=== PATIENT | female | born 1960 | race Two or more races ===

== ENCOUNTER 2023-11-27 15:27 | Inpatient (IN) | payer BC, OTHER ==
[~2023-11-27] VITALS: Ht 160 cm; Wt 99.8 kg
[2023-11-27 08:25] VITALS: BP 136/86; TEMP 97.7; O2SAT 99
[2023-11-27 16:36] LABS: BASOPHILS % (AUTO) 0.5 % (0.0-2.0); EOSINOPHILS # (AUTO) 0.1 K/uL (0.0-0.7); EOSINOPHILS % (AUTO) 2.1 % (0.0-6.0); HEMATOCRIT 41 % (33-45); HEMOGLOBIN 13.3 g/dL (11.5-14.8); LYMPHOCYTES % (AUTO) 41.5 % (20.0-44.0); MEAN CORPUSCULAR HEMOGLOBIN 27 PG (26.0-33.0); MEAN CORPUSCULAR HGB CONC 33 g/dl (31.0-36.0); MEAN CORPUSCULAR VOLUME 82 fL (82-100); MONOCYTES # (AUTO) 0.6 K/uL (0.1-1.30); NEUTROPHILS # (AUTO) 3.4 K/uL (1.8-8.9); NEUTROPHILS % (AUTO) 47.9 % (43.0-81.0); PLATELET COUNT (AUTO) 295 K/uL (150-450); RED BLOOD CELL COUNT(AUTO) 4.93 MIL/uL (4.0-5.2); RED CELL DISTRIBUTION WIDTH 14.1 % (11.5-15.0); WHITE BLOOD COUNT (AUTO) 7.2 K/uL (4.3-11.0)
[2023-11-27 16:44] LABS: CALCIUM, SERUM 9.1 mg/dL (8.5-10.1); CARBON DIOXIDE 29 mmol/L (21-32); CHLORIDE 105 mmol/L (98-107); CREATININE 0.7 mg/dL (0.6-1.3); GLUCOSE 108 mg/dL (74-106); POTASSIUM 3.1 mmol/L (3.5-5.1); SODIUM SERUM 142 mmol/L (136-145); UREA NITROGEN, BLOOD 14 mg/dL (7-18)
[2023-11-27] MEDS ORDERED: AMLO-212 PO (16:49)
[2023-11-27] MEDS ORDERED: IPRA0.2S49 IH (16:49)
[2023-11-27] MEDS ORDERED: DOCUSATE SODIUM PO (16:49)
[2023-11-27] MEDS ORDERED: PREG100C PO (16:49)
[2023-11-27] MEDS ORDERED: ONDA-97 PO (16:49)
[2023-11-27] MEDS ORDERED: NYST30CR2 TP (16:49)
[2023-11-27] MEDS ORDERED: LEVO5TAB13 PO (16:49)
[2023-11-27 17:00] LABS: ALANINE AMINOTRANSFERASE 9 U/L (12-78); ALBUMIN 3.6 g/dL (3.4-5.0); ALKALINE PHOSPHATASE 83 U/L (46-116); ASPARTATE AMINOTRANSFERASE 18 U/L (15-37); BILIRUBIN,DIRECT 0.1 mg/dL (0.0-0.2); BILIRUBIN,TOTAL 0.4 mg/dL (0.2-1.0); NT-PRO BNP 402 pg/mL (0-125); TOTAL PROTEIN, SERUM 7.2 g/dL (6.4-8.2)
[2023-11-27] MEDS: MORPHINE SULFATE INJ 2 MG/ML DISP.SYRIN IV ONE (17:08)
[2023-11-27] MEDS ORDERED: MORPHINE SULFATE INJ 2 MG/ML DISP.SYRIN ONE (17:10)
[2023-11-27] MEDS ORDERED: Z GUARD REMEDY 4 OZ OINT TP PRN (18:00)
[2023-11-27] MEDS ORDERED: ZOLPIDEM TARTRATE 5 MG TABLET PO PRN (18:00)
[2023-11-27] MEDS ORDERED: HYDROCODONE/APAP 5/325MG TABLET PO PRN (18:00)
[2023-11-27] MEDS ORDERED: ACETAMINOPHEN 325 MG TABLET PO PRN (18:00)
[2023-11-27] MEDS ORDERED: ONDANSETRON HCL/PF 4 MG/2 ML VIAL IVP PRN (18:00)
[2023-11-27] MEDS ORDERED: MAGNESIUM HYDROXIDE 30 ML UDC PO PRN (18:00)
[2023-11-27 18:48] VITALS: BP 133/81; TEMP 97.9; O2SAT 96
[2023-11-27 20:00] VITALS: BP 136/86; TEMP 97.7; O2SAT 99
[2023-11-27] MEDS: ENOXAPARIN SODIUM 40 MG/0.4 ML DISP.SYRIN SQ SCH (20:21)
[2023-11-27] MEDS: MAG HYDROX/AL HYDROX/SIMETH 30 ML UDC PO PRN (22:02)
[2023-11-28] VITALS (8 sets, daily range): BP systolic 109–136; BP diastolic 64–91; TEMP 97.7–98.5; O2SAT 97–100
[2023-11-28] MEDS: POTASSIUM CHLORIDE 20 MEQ TAB.PRT.SR PO ONE (01:16)
[2023-11-28 06:08] LABS: BASOPHILS % (AUTO) 0.5 % (0.0-2.0); EOSINOPHILS # (AUTO) 0.1 K/uL (0.0-0.7); EOSINOPHILS % (AUTO) 2.5 % (0.0-6.0); HEMATOCRIT 38 % (33-45); HEMOGLOBIN 12.4 g/dL (11.5-14.8); LYMPHOCYTES # (AUTO) 2.2 K/uL (0.8-4.8); LYMPHOCYTES % (AUTO) 39.3 % (20.0-44.0); MEAN CORPUSCULAR HEMOGLOBIN 27 PG (26.0-33.0); MEAN CORPUSCULAR HGB CONC 32 g/dl (31.0-36.0); MEAN CORPUSCULAR VOLUME 83 fL (82-100); MONOCYTES # (AUTO) 0.5 K/uL (0.1-1.30); MONOCYTES % (AUTO) 9.7 % (2.0-12.0); NEUTROPHILS # (AUTO) 2.7 K/uL (1.8-8.9); PLATELET COUNT (AUTO) 248 K/uL (150-450); RED BLOOD CELL COUNT(AUTO) 4.65 MIL/uL (4.0-5.2); RED CELL DISTRIBUTION WIDTH 14.4 % (11.5-15.0); WHITE BLOOD COUNT (AUTO) 5.6 K/uL (4.3-11.0)
[2023-11-28 06:48] LABS: THYROID STIMULATING HORMONE 1.41 uIU/mL (0.358-3.74)
[2023-11-28] MEDS: PANTOPRAZOLE 40 MG TABLET.DR PO SCH (08:16)
[2023-11-28 09:56] LABS: CALCIUM, SERUM 8.7 mg/dL (8.5-10.1); CREATININE 0.8 mg/dL (0.6-1.3); MAGNESIUM 1.9 mg/dL (1.8-2.4); PHOSPHORUS 3.8 mg/dL (2.5-4.9)
[2023-11-28] MEDS: BUTALB/APAP/CAFFEINE 1 EACH TABLET PO PRN (10:35)
[2023-11-28] MEDS: AMLODIPINE BESYLATE 5 MG TABLET PO SCH (10:35)
[2023-11-28] MEDS ORDERED: NYSTATIN CREAM 15 GM TUBE TP PRN (14:00)
[2023-11-28] MEDS ORDERED: Medication Not On Formulary EA (Ondansetron Hcl 4 MG) PO SCH (14:00)
[2023-11-28] MEDS ORDERED: IV NS 0.9% 250 ML IV ONE (14:07)
[2023-11-28] MEDS ORDERED: IOHEXOL-350 100 ML VIAL IV ONE (14:07)
[2023-11-28] MEDS ORDERED: CT SWABBABLE VALVE TRANS SET 1 EA INFUS.SET MC ONE (14:07)
[2023-11-28] MEDS ORDERED: NITROGLYCERIN 0.4 MG/TAB BOTTLE ONE (14:53)
[2023-11-28] MEDS: METOPROLOL TARTRATE INJ 5 MG/5 ML AMPUL IVP PRN (15:00)
[2023-11-28] MEDS: NITROGLYCERIN 0.4 MG/TAB BOTTLE SL ONE (15:04)
[2023-11-28] MEDS ORDERED: IPRATROPIUM NEB FS 0.5 MG/2.5 ML AMPUL.NEB IH PRN (15:30)
[2023-11-28] MEDS ORDERED: IPRATROPIUM NEB FS 0.5 MG/2.5 ML AMPUL.NEB IH SCH (15:30)
[2023-11-28] MEDS ORDERED: PREGABALIN 100 MG CAPSULE PO SCH (22:00)
[2023-11-28] MEDS ORDERED: Medication Not On Formulary EA (Levocetirizine Dihydrochloride 5 MG) PO SCH (22:00)
[2023-11-29] MEDS ORDERED: cetrizine 10 MG TABLET PO SCH (09:00)
== END 2023-11-28 21:54 | DRG 206 ==
LOC: ER 16:21 → TELE1 17:56
PROVIDERS: ADMIT Student in an Organized Health Care Education/Training Program; ATTEND Student in an Organized Health Care Education/Training Program
DX: M94.0 Chondrocostal junction syndrome [Tietze] (principal); E87.6 Hypokalemia; I11.0 Hypertensive heart disease with heart failure; I50.9 Heart failure, unspecified; K31.84 Gastroparesis; E78.5 Hyperlipidemia, unspecified; J44.9 Chronic obstructive pulmonary disease, unspecified; M79.7 Fibromyalgia; Z79.82 Long term (current) use of aspirin; Z88.6 Allergy status to analgesic agent
CPT/HCPCS: 36415; 71045-TC; 75574; 80048-TC; 80076-TC; 83735-TC; 83880; 84100-TC; 84443-TC; 84484-TC; 85025-TC; 93307-TC; 94799-TC; G0378; J1650; J2270; J3490; J7050; Q9967

== ENCOUNTER 2023-12-02 15:36 | Inpatient (IN) | payer BC, OTHER ==
[~2023-12-02 15:36] MED LIST: AMLO-212 PO; DOCUSATE SODIUM PO; IPRA0.2S49 IH; LEVO5TAB13 PO; NYST30CR2 TP; ONDA-97 PO; PREG100C PO
[2023-12-02] MEDS ORDERED: ONDANSETRON HCL/PF 4 MG/2 ML VIAL IVP PRN (22:00)
[2023-12-02] MEDS ORDERED: MAG HYDROX/AL HYDROX/SIMETH 30 ML UDC PO PRN (22:00)
[2023-12-02] MEDS ORDERED: Z GUARD REMEDY 4 OZ OINT TP PRN (22:00)
[2023-12-02] MEDS ORDERED: ZOLPIDEM TARTRATE 5 MG TABLET PO PRN (22:00)
[2023-12-02] MEDS ORDERED: MAGNESIUM HYDROXIDE 30 ML UDC PO PRN (22:00)
[2023-12-03] VITALS: BP 138/80; TEMP 97.7; O2SAT 97
[2023-12-03 04:00] VITALS: BP 138/99; TEMP 98.8; O2SAT 97
[2023-12-03 07:43] LABS: BASOPHILS % (AUTO) 0.2 % (0.0-2.0); EOSINOPHILS # (AUTO) 0.1 K/uL (0.0-0.7); EOSINOPHILS % (AUTO) 0.9 % (0.0-6.0); HEMATOCRIT 39 % (33-45); HEMOGLOBIN 13.3 g/dL (11.5-14.8); LYMPHOCYTES # (AUTO) 2.2 K/uL (0.8-4.8); MEAN CORPUSCULAR HEMOGLOBIN 28 PG (26.0-33.0); MEAN CORPUSCULAR HGB CONC 34 g/dl (31.0-36.0); MEAN CORPUSCULAR VOLUME 82 fL (82-100); MONOCYTES # (AUTO) 0.7 K/uL (0.1-1.30); MONOCYTES % (AUTO) 7.5 % (2.0-12.0); NEUTROPHILS # (AUTO) 6.7 K/uL (1.8-8.9); NEUTROPHILS % (AUTO) 68.4 % (43.0-81.0); PLATELET COUNT (AUTO) 312 K/uL (150-450); RED BLOOD CELL COUNT(AUTO) 4.82 MIL/uL (4.0-5.2); RED CELL DISTRIBUTION WIDTH 14.4 % (11.5-15.0); WHITE BLOOD COUNT (AUTO) 9.8 K/uL (4.3-11.0)
[2023-12-03] MEDS: PANTOPRAZOLE 40 MG TABLET.DR PO SCH (07:59)
[2023-12-03 08:00] VITALS: BP 135/96; TEMP 98.2; O2SAT 98
[2023-12-03] MEDS: ENOXAPARIN SODIUM 40 MG/0.4 ML DISP.SYRIN SQ SCH (08:00)
[2023-12-03] MEDS ORDERED: CLON0.1T PO (08:03)
[2023-12-03] MEDS ORDERED: ESCI20TA PO (08:03)
[2023-12-03] MEDS ORDERED: DOCU250C14 PO (08:03)
[2023-12-03] MEDS ORDERED: PANT40TA2 PO (08:03)
[2023-12-03] MEDS ORDERED: ATOR20TA PO (08:03)
[2023-12-03] MEDS ORDERED: DICY10CA13 PO (08:03)
[2023-12-03] MEDS ORDERED: ATEN50TA PO (08:03)
[2023-12-03] MEDS ORDERED: HYDR50TA61 PO (08:03)
[2023-12-03] MEDS ORDERED: FAMO20TA80 PO (08:03)
[2023-12-03] MEDS ORDERED: MECL-159 PO (08:04)
[2023-12-03] MEDS ORDERED: TRAZ150T75 PO (08:04)
[2023-12-03] MEDS ORDERED: FERR-68 PO (08:04)
[2023-12-03] MEDS ORDERED: [UNRECOGNIZED DRUG - CODE] PO (08:04)
[2023-12-03] MEDS ORDERED: NYST15PO3 TP (08:04)
[2023-12-03] MEDS ORDERED: CALC-167 PO (08:04)
[2023-12-03] MEDS ORDERED: ASPI-1169 PO (08:04)
[2023-12-03] MEDS ORDERED: MAGN400T26 PO (08:04)
[2023-12-03] MEDS ORDERED: CYAN-51 PO (08:04)
[2023-12-03] MEDS ORDERED: FOLI0.4T6 PO (08:04)
[2023-12-03] MEDS ORDERED: LACT1TAB20 PO (08:04)
[2023-12-03 08:24] LABS: ALANINE AMINOTRANSFERASE < 6 U/L (12-78); ALBUMIN 3.2 g/dL (3.4-5.0); ALKALINE PHOSPHATASE 97 U/L (46-116); ASPARTATE AMINOTRANSFERASE 11 U/L (15-37); BILIRUBIN,DIRECT 0.2 mg/dL (0.0-0.2); BILIRUBIN,TOTAL 0.8 mg/dL (0.2-1.0); CALCIUM, SERUM 8.8 mg/dL (8.5-10.1); CARBON DIOXIDE 22 mmol/L (21-32); CHLORIDE 108 mmol/L (98-107); CREATININE 0.6 mg/dL (0.6-1.3); GLUCOSE 141 mg/dL (74-106); MAGNESIUM 1.7 mg/dL (1.8-2.4); PHOSPHORUS 3.2 mg/dL (2.5-4.9); POTASSIUM 3.3 mmol/L (3.5-5.1); SODIUM SERUM 144 mmol/L (136-145); TOTAL PROTEIN, SERUM 7.1 g/dL (6.4-8.2); UREA NITROGEN, BLOOD 9 mg/dL (7-18)
[2023-12-03 08:31] LABS: LACTIC ACID 1.1 mmol/L (0.4-2.0)
[2023-12-03 08:35] LABS: CHOLESTEROL 195 mg/dL (<200); HDL CHOLESTEROL 59 mg/dL (40-60); LDL 106 mg/dL (0-99); TRIGLYCERIDES 92 mg/dL (30-150)
[2023-12-03] MEDS ORDERED: SUMA100T PO (09:15)
[2023-12-03] MEDS: CEFTRIAXONE 1 G in IV D5W 50 ML IV SCH (09:50)
[2023-12-03] MEDS ORDERED: FIXODENT DENTURE ADHESIVE CREAM TUBE MM PRN (10:00)
[2023-12-03] MEDS ORDERED: MAGNESIUM OXIDE 400 MG TABLET PO ONE ×2 (11:00→16:30)
[2023-12-03] MEDS: Magnesium 1GM/D5W 100ML PREMIX 100 ML IV SCH (11:30)
[2023-12-03] MEDS: POTASSIUM CHLORIDE 20 MEQ TAB.PRT.SR PO SCH (11:52)
[2023-12-03] MEDS: IBUPROFEN 600 MG TABLET PO PRN (11:56)
[2023-12-03 12:04] LABS: THYROID STIMULATING HORMONE 2.17 uIU/mL (0.358-3.74)
[2023-12-03] MEDS ORDERED: MAGNESIUM CHLORIDE 64 MG TABLET.SA PO SCH (14:30)
[2023-12-03 16:00] VITALS: BP 148/92; TEMP 98.4; O2SAT 98
[2023-12-03] MEDS: MAGNESIUM OXIDE 400 MG TABLET PO ONE ×3 (17:04→17:05)
[2023-12-03 21:34] VITALS: BP 149/100; TEMP 98.1; O2SAT 98
[2023-12-04 04:00] VITALS: BP 148/90; TEMP 98.1; O2SAT 98
[2023-12-04 08:00] VITALS: BP 139/95; TEMP 98.1; O2SAT 100
[2023-12-04 08:06] LABS: CALCIUM, SERUM 8.9 mg/dL (8.5-10.1); CARBON DIOXIDE 16 mmol/L (21-32); CHLORIDE 107 mmol/L (98-107); CREATININE 0.7 mg/dL (0.6-1.3); GLUCOSE 185 mg/dL (74-106); MAGNESIUM 2.1 mg/dL (1.8-2.4); POTASSIUM 3.3 mmol/L (3.5-5.1); SODIUM SERUM 140 mmol/L (136-145); UREA NITROGEN, BLOOD 10 mg/dL (7-18)
[2023-12-04 09:09] LABS: FOLIC ACID 16.9 ng/mL (>3.0)
[2023-12-04] MEDS: PANTOPRAZOLE 40 MG TABLET.DR PO SCH (11:30)
[2023-12-04] MEDS ORDERED: CLONIDINE HCL 0.1 MG TABLET PO PRN (11:30)
[2023-12-04] MEDS ORDERED: SUMATRIPTAN SUCCINATE 100 MG TABLET PO PRN (11:30)
[2023-12-04] MEDS: ALPRAZOLAM 0.25 MG TABLET PO PRN (11:35)
[2023-12-04] MEDS: POTASSIUM CHLORIDE 20 MEQ TAB.PRT.SR PO SCH (11:35)
[2023-12-04] MEDS: ASPIRIN 81 MG TAB.CHEW PO SCH (12:25)
[2023-12-04] MEDS: MAGNESIUM OXIDE 400 MG TABLET PO SCH (12:25)
[2023-12-04] MEDS: DOCUSATE SODIUM 250 MG CAPSULE PO SCH (12:25)
[2023-12-04] MEDS: FERROUS SULFATE (325 MG) 325 MG/TAB TABLET PO SCH (12:25)
[2023-12-04] MEDS: FAMOTIDINE (20 MG) 20 MG TABLET PO SCH (12:26)
[2023-12-04] MEDS: ATENOLOL 50 MG TABLET PO SCH (12:27)
[2023-12-04] MEDS: DICYCLOMINE HCL 10 MG CAPSULE PO SCH (12:37)
[2023-12-04] MEDS: PREGABALIN 100 MG CAPSULE PO SCH (12:37)
[2023-12-04 16:00] VITALS: BP 131/82; TEMP 97.7; O2SAT 98
[2023-12-04] MEDS ORDERED: POTASSIUM CHLORIDE 20 MEQ TAB.PRT.SR PO ONE (16:00)
[2023-12-04] MEDS: POTASSIUM CHLORIDE 20 MEQ TAB.PRT.SR PO ONE (16:56)
[2023-12-04] MEDS ORDERED: POTASSIUM CHLORIDE 20 MEQ TAB.PRT.SR PO SCH (17:00)
[2023-12-04 20:00] VITALS: BP 133/93; TEMP 98.2; O2SAT 98
[2023-12-04] MEDS: ATORVASTATIN 10 MG TABLET PO SCH (21:29)
[2023-12-04] MEDS: TRAZODONE 50 MG TABLET PO SCH (21:29)
[2023-12-04] MEDS: TRAZODONE 50 MG TABLET PO ONE (21:50)
[2023-12-05] MEDS: hydrOXYzine PAMOATE 25 MG CAPSULE PO PRN (06:42)
[2023-12-05 08:30] VITALS: BP 123/79; TEMP 98; O2SAT 100
[2023-12-05] MEDS: ESCITALOPRAM OXALATE (10 MG) 10 MG TABLET PO SCH (09:02)
[2023-12-05] MEDS: AMLODIPINE BESYLATE 5 MG TABLET PO SCH (09:03)
[2023-12-05] MEDS: ENSURE ENLIVE 237 ML LIQUID (VANILLA) PO SCH (09:14)
[2023-12-05] MEDS: ALPRAZOLAM 1 MG TABLET PO ONE (10:00)
[2023-12-05 16:45] VITALS: BP 100/66; TEMP 98.7; O2SAT 94
[2023-12-05 20:00] VITALS: BP 121/62; TEMP 98.7; O2SAT 95
[2023-12-06 04:00] VITALS: BP 120/60; TEMP 98.2; O2SAT 96
[2023-12-06 08:00] VITALS: BP 140/68; TEMP 97.6; O2SAT 98
[2023-12-06] MEDS: MECLIZINE HCL 25 MG TABLET PO PRN (10:05)
[2023-12-06] MEDS ORDERED: IV NS 0.9% 250 ML IV ONE (14:52)
[2023-12-06] MEDS ORDERED: CT SWABBABLE VALVE TRANS SET 1 EA INFUS.SET MC ONE (14:52)
[2023-12-06] MEDS ORDERED: IOHEXOL-350 100 ML VIAL IV ONE (14:52)
[2023-12-06] MEDS: ALPRAZOLAM 1 MG TABLET PO ONE (14:56)
[2023-12-06 16:00] VITALS: BP 122/85; TEMP 97.6; O2SAT 98
[2023-12-06 20:00] VITALS: BP_SYST 102; BP_DIAS 51; BP_DIAS 56; TEMP 97.7; O2SAT 96
[2023-12-06] MEDS ORDERED: AMOX-430 PO (20:14)
== END 2023-12-06 22:45 | disposition home or self-care (01) | DRG 689 ==
LOC: TELE1 19:59 → MEDSG1 12-03 10:09
PROVIDERS: ADMIT Nurse Practitioner Family; ATTEND Internal Medicine
DX: N39.0 Urinary tract infection, site not specified (principal); G93.41 Metabolic encephalopathy; E87.20 Acidosis, unspecified; I50.9 Heart failure, unspecified; I11.0 Hypertensive heart disease with heart failure; E87.6 Hypokalemia; F12.10 Cannabis abuse, uncomplicated; E78.5 Hyperlipidemia, unspecified; M79.7 Fibromyalgia; Z88.6 Allergy status to analgesic agent; E66.3 Overweight; R07.9 Chest pain, unspecified
CPT/HCPCS: 36415; 70450-TC; 70496-TC; 70498-TC; 80048-TC; 80061-TC; 80076-TC; 82607-TC; 83605-TC; 83735-TC; 83921; 84100-TC; 84443-TC; 85025-TC; G0378; J0696; J1650; J3475; J7050; J7060; J8597; Q0177; Q9967